=== PATIENT | male | born 2005 | race Hispanic/Latino ===

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

== ENCOUNTER 2024-08-25 08:17 | Emergency (ER) | payer OTHER, SELFPAY ==
--- OUTSIDE RECORDS SUMMARY | 2024-08-25 08:21 | XMS REPORT | Continuity of Care Document ---
Author Name Unknown Address [address] [facility]. [address] [place] [address] [facility] Address [address] [facility] [address] [place] [address] Care Team Providers Care Consultant Teacher Name Role Phone PA BURROWS Primary Care Physician Unavail able MARK NDIAYE Attending Clinician UnavailAlex Cintron Attending Clinician Unavailable KNOW, DOES_NOT Admitting Clinician Unavailable Romana Floyd Admitting Clinician Unavailable Payers Payer Name Policy Type Policy Number Effective Date Expirati on Date Source [facility] [id number] 2017 00:00:00 Allergies, Adverse Reactions, Alerts Allergy Name Allergy Type Status Severity Reaction(s) Onset Date Inactive Date Treating Clinician Comments Source No Known Allergie s DA Active U 12-14 00:00: 00 [facility] Penicill ins Propensi ty to adverse reaction to drug Active 2018-05 00:00: 00 PENICILL IN DRUG INGREDI Active Unknown-Cmnt 2017-05 00:00: 00 [facility] Medications Ordered Medication Name Filled Medication Name Start Date Stop Date Current Medication? Ordering Clinician Indication Dosage Frequency Signature (SIG) Comments Components Source TAKE 1 TABLET BY MOUTH EVERY 12 HOURS 2022-0 8-29 00:00: 00 No 20 TAKE 1 TABLET BY MOUTH EVERY 12 HOURS 2022-0 8-29 00:00: 00 No &lt 2022-0 8-10 00:00: 00 No Dose Unknown 2022-0 8-10 00:00: 00 No TAKE 1 TABLET BY MOUTH THREE TIMES A DAY NEEDED FOR PAIN 2022-0 8-09 00:00: 00 No 800 TAKE 1 TABLET BY MOUTH THREE TIMES A DAY NEEDED FOR PAIN 2022-0 8-09 00:00: 00 No 800 Dose Unknown 2022-0 8-04 00:00: 00 No Dose Unknown 2022-0 8-04 00:00: 00 No Dose Unknown 2022-0 7-21 00:00: 00 No 20 &lt 2022-0 7-21 00:00: 00 No Dose Unknown 2022-0 7-21 00:00: 00 No 10 &lt 2022-0 7-21 00:00: 00 No 800 Dose Unknown 2022-0 7-21 00:00: 00 No 20 &lt 2022-0 7-21 00:00: 00 No Dose Unknown 2022-0 7-21 00:00: 00 No 10 &lt 2022-0 7-21 00:00: 00 No 800 ProAir HFA 90 mcg/actuati on aerosol inhaler 2022-0 6-14 00:00: 00 No 2mcg/ac tuation Flovent HFA 44 mcg/actuati on aerosol inhaler 2022-0 6-14 00:00: 00 No 2mcg/ac tuation cetirizine 10 mg tablet 2022-0 6-14 00:00: 00 No 1mg &lt 2022-0 6-14 00:00: 00 No &lt 2022-0 6-14 00:00: 00 No ProAir HFA 90 mcg/actuati on aerosol inhaler 2022-0 6-14 00:00: 00 No 2mcg/ac tuation Flovent HFA 44 mcg/actuati on aerosol inhaler 2022-0 6-14 00:00: 00 No 2mcg/ac tuation cetirizine 10 mg tablet 2022-0 6-14 00:00: 00 No 1mg &lt 2022-0 6-14 00:00: 00 No &lt 2022-0 6-14 00:00: 00 No ProAir HFA 90 mcg/actuati on aerosol inhaler 0 9-08 00:00: 00 No 2mcg/ac tuation Flovent HFA 44 mcg/actuati on aerosol inhaler 0 9- 00:00: 00 No 2mcg/ac tuation prednisone 20 mg tablet 0 9- 00:00: 00 No 1mg ProAir HFA 90 mcg/actuati on aerosol inhaler 0 9- 00:00: 00 No 2mcg/ac tuation Flovent HFA 44 mcg/actuati on aerosol inhaler 0 02-04 00:00: 00 No 2mcg/ac tuation prednisone 20 mg tablet 0 02-04 00:00: 00 No 1mg ondansetron 4 mg disintegrat ing tablet 0 3-17 00:00: 00 No 1mg ondansetron 4 mg disintegrat ing tablet 0 3-17 00:00: 00 No 1mg ProAir HFA 90 mcg/actuati on aerosol inhaler 2019-05 2-11 00:00: 00 No 2mcg/ac tuation montelukast 10 mg tablet 2019-05 2-11 00:00: 00 No 1mg ProAir HFA 90 mcg/actuati on aerosol inhaler 2019-05 2-11 00:00: 00 No 2mcg/ac tuation montelukast 10 mg tablet 2019-05 2- 00:00: 00 No 1mg Nexium Packet 20 mg granules delayed release for susp 2019-0 -24 00:00: 00 No 1mg Nexium Packet 20 mg granules delayed release for susp 0 24 00:00: 00 No 1mg ProAir HFA 90 mcg/actuati on aerosol inhaler 02-19 00:00: 00 No 2mcg/ac tuation montelukast 10 mg tablet 02-19 00:00: 00 No 1mg prednisone 20 mg tablet 0 02-19 00:00: 00 No 1mg azithromyci n 250 mg tablet 0 02-19 00:00: 00 No mg ProAir HFA 90 mcg/actuati on aerosol inhaler 0 02-19 00:00: 00 No 2mcg/ac tuation montelukast 10 mg tablet 02-19 00:00: 00 No 1mg prednisone 20 mg tablet 02-19 00:00: 00 No 1mg azithromyci n 250 mg tablet 02-19 00:00: 00 No mg omeprazole 20 mg capsule,del ayed release 02-18 00:00: 00 No 1mg omeprazole 20 mg capsule,del ayed release 02-18 00:00: 00 No 1mg hydroxyzine HCl 50 mg tablet 02-17 00:00: 00 No 1mg hydroxyzine HCl 50 mg tablet 02-17 00:00: 00 No 1mg hydroxyzine HCl 50 mg tablet 01-24 00:00: 00 No 1mg ondansetron 8 mg disintegrat ing tablet 01-24 00:00: 00 No 1mg hydroxyzine HCl 50 mg tablet 01-24 00:00: 00 No 1mg ondansetron 8 mg disintegrat ing tablet 01-24 00:00: 00 No 1mg omeprazole 20 mg capsule,del ayed release 01-16 00:00: 00 No 1mg omeprazole 20 mg capsule,del ayed release 01-16 00:00: 00 No 1mg omeprazole 20 mg tablet,[place] yed release 01-14 00:00: 00 No 1mg ondansetron 4 mg disintegrat ing tablet 01-14 00:00: 00 No 1mg omeprazole 20 mg tablet,[place] y[place] release 01-14 00:00: 00 No 1mg ondansetron 4 mg disintegrat ing tablet 01-14 00:00: 00 No 1mg cetirizine 10 mg tablet 2018-05 00:00: 00 No 1mg azithromyci n 250 mg tablet 2018-05 00:00: 00 No mg montelukast 10 mg tablet 2018-05 00:00: 00 No 1mg Flonase Allergy Relief 50 mcg/actuati on nasal spray,suspe nsion 2018-05 00:00: 00 No 2mcg/ac tuation montelukast 10 mg tablet 2018-05 00:00: 00 No 1mg cetirizine 10 mg tablet 2018-05 00:00: 00 No 1mg azithromyci n 250 mg tablet 2018-05 00:00: 00 No mg Flonase Allergy Relief 50 mcg/actuati on nasal spray,suspe nsion 2018-05 00:00: 00 No 2mcg/ac tuation ProAir HFA 90 mcg/actuati on aerosol inhaler 2018-05 00:00: 00 No 2mcg/ac tuation Flovent HFA 44 mcg/actuati on aerosol inhaler 2018-05 00:00: 00 No 2mcg/ac tuation montelukast 10 mg tablet 2018-05 00:00: 00 No 1mg meclizine 25 mg tablet 2018-05 00:00: 00 No 1mg ProAir HFA 90 mcg/actuati on aerosol inhaler 2018-05 00:00: 00 No 2mcg/ac tuation Flovent HFA 44 mcg/actuati on aerosol inhaler 2018-05 00:00: 00 No 2mcg/ac tuation montelukast 10 mg tablet 2018-05 00:00: 00 No 1mg meclizine 25 mg tablet 2018-05 00:00: 00 No 1mg Vital Signs Vital Name Observation Time Observation Value Comments S ource BP Systolic 2021-12-17 17:39:00 135 mm[Hg] BP [...] 11:38:00 88.00 /min Respiratory Rate 2019-03-21 11:38:00 Plan of Care Planned Activity Planned Date Details Comments Source Goal Plan of Care Note [code = 71167-5] Goal Plan of Care Note [code = 69849-7] Goal Plan of Care Note [code = 70346-1] Goal Plan of Care Note [code = 41679-6] Goal Plan of Care Note [code = 10623-8] Goal Plan of Care Note [code = 33038-0] Goal Plan of Care Note [code = 15172-6] Goal Plan of Care Note [code = 28297-6] Goal Plan of Care Note [code = 80705-2] Goal Plan of Care Note [code = 32272-6] Goal Plan of Care Note [code = 35442-7] Goal Plan of Care Note [code = 58000-4] Goal Plan of Care Note [code = 56770-2] Goal Plan of Care Note [code = 91873-1] Goal Plan of Care Note [code = 77366-0] Goal Plan of Care Note [code = 36474-4] Goal Plan of Care Note [code = 49649-1] Goal Plan of Care Note [code = 06443-1] Goal Plan of Care Note [code = 03254-5] Goal Plan of Care Note [code = 95865-7] Goal Plan of Care Note [code = 37139-6] Goal Plan of Care Note [code = 60083-1] Goal Plan of Care Note [code = 08561-4] Goal Plan of Care Note [code = 20484-8] Goal Plan of Care Note [code = 37747-4] Goal Plan of Care Note [code = 21643-1] Goal Plan of Care Note [code = 89657-9] Goal Plan of Care Note [code = 82688-7] Goal Plan of Care Note [code = 89733-1] Goal Plan of Care Note [code = 61240-4] Goal Plan of Care Note [code = 37043-8] Goal Plan of Care Note [code = 36046-3] Goal Plan of Care Note [code = 63143-5] Goal Plan of Care Note [code = 47549-5] Goal Plan of Care Note [code = 60293-3] Goal Plan of Care Note [code = 07369-2] Goal Plan of Care Note [code = 94441-1] Goal Plan of Care Note [code = 51721-3] Goal Plan of Care Note [code = 96926-9] Goal Plan of Care Note [code = 76333-5] Goal Plan of Care Note [code = 53452-9] Goal Plan of Care Note [code = 67901-6] Goal Plan of Care Note [code = 50003-8] Goal Plan of Care Note [code = 80064-7] Goal Plan of Care Note [code = 53849-2] Goal Plan of Care Note [code = 56050-0] Goal Plan of Care Note [code = 64390-8] Goal Plan of Care Note [code = 96182-5] Goal Plan of Care Note [code = 51864-1] Goal Plan of Care Note [code = 38565-4] Goal Plan of Care Note [code = 71957-5] Goal Plan of Care Note [code = 84227-2] Goal Plan of Care Note [code = 59703-5] Goal Plan of Care Note [code = 07629-0] Goal Plan of Care Note [code = 63104-4] Goal Plan of Care Note [code = 55988-5] Goal Plan of Care Note [code = 27443-2] Goal Plan of Care Note [code = 40246-0] Goal Plan of Care Note [code = 83691-5] Goal Plan of Care Note [code = 19467-9] Goal Plan of Care Note [code = 67461-8] Goal Plan of Care Note [code = 53229-4] Goal Plan of Care Note [code = 67022-4] Goal Plan of Care Note [code = 27388-9] Goal Plan of Care Note [code = 11101-6] Goal Plan of Care Note [code = 50100-9] Goal Plan of Care Note [code = 79023-8] Goal Plan of Care Note [code = 93827-7] Goal Plan of Care Note [code = 40809-8] Goal Plan of Care Note [code = 09546-7] Goal Plan of Care Note [code = 39294-1] Goal Plan of Care Note [code = 00598-1] Goal Plan of Care Note [code = 11438-9] Goal Plan of Care Note [code = 12254-4] Encounters Start Date/Time End Date/Time Encounter Type Admission Type Attending [facility] Care Department Encounter ID Source 2023-02-07 11:48:09 2023-02-07 11:48:09 Outpatient [facility] [id number] Eren Hunt 2022-03-08 14:07:41 2022-03-08 14:07:41 Outpatient [facility] [id number] Eren Hunt 2022-03-08 00:00:00 2022-03-08 00:00:00 Outpatient Visit [id number] 2022-01-25 00:00:00 2022-01-25 00:00:00 Outpatient Visit [id number] 2021-12-25 09:15:00 2021-12-25 09:15:00 Outpatient [facility] [id number] [facility] 2021-12-25 09:15:00 2021-12-25 09:15:00 Outpatient [facility] [id number] [facility] 2021-12-17 00:00:00 2021-12-17 00:00:00 Outpatient Visit [id number] 2021-12-14 09:48:00 2021-12-14 11:00:00 Emergency EM Alex Nolen HCAPM SONIA [id number] [facility] 2021-12-14 09:48:00 2021-12-14 11:00:00 Emergency EM Alex Nolen HCAPM [facility] [id number] [facility] Results Test Description Test Time Test Comments Results Result Co mments Source - XR KNEE 3 V LT 2021-12-14 10:17:00 [facility] 2005 Sex: M Name: YAHAIRA GARCÍA [place] : 2005 Age/S: 16 / M [address] [facility] Unit #: [id number] Loc: [place] [address] Phys: Alex Nolen DO Acct: [id number] Dis Date: Status: REG ER PHONE #: [phone] Exam Date: 12/14/2021 1013 FAX #: Reason: trauma EXAMS: CPT: [id number] XR KNEE 3 V LT [address]402 Fluoro Time: DAP (Gy m2): Air Kerma [...] PAGE 1 Signed Report Name: YAHAIRA GARCÍA [place] : 2005 Age/S: 16 / M [address] [place] [address] Unit #: [id number] Loc: [place] [address] Phys: Alex Nolen DO Acct: [id number] Dis Date: Status: REG ER PHONE #: [phone] Exam Date: 12/14/2021 1013 FAX #: Reason: trauma EXAMS: CPT: [id number] XR KNEE 3 [place] [address] Fluoro Time: DAP (Gy m2): Air Kerma (mGy): (Continued) Technologist: RT Stephanie(R) Trnscb Date/Time: 12/14/2021 (1017) Garo Orig Print D/T: S: 12/14/2021 (1020) PAGE 2 Signed Report SARS-CoV-2 (COVID-19) by RT-PCR (HIGH RISK)2021-02-06 00:00:00* Test Item Value Reference Range Interpretation Comme nts SARS-CoV-2 INTERPRETATION (t est code = 05496) NEGATIVE SOURCE (test code = 56051) NOT SPECIFIED SARS-CoV-2 (COVID-19) by RT-PCR (HIGH RISK)2021-02-06 00:00:00* Test Item Value Reference Range Interpretation Comme nts SARS-CoV-2 INTERPRETATION (t est code = 27261) NEGATIVE SOURCE (test code = 96974) NOT SPECIFIED CHLAMYDIA TRACHOMATIS RNA, [id number] 00:00:00* Test Item Value Reference Range Interpretation Comme nts CHLAMYDIA TRACHOMATIS RNA, T MA, UROGENITAL (test code = 66473-2) NOT DETECTED COMMENT (test code = ) NEISSERIA GONORRHOEAE RNA, [id number] 00:00:00* Test Item Value Reference Range Interpretation Comme nts NEISSERIA GONORRHOEAE RNA, T MA, UROGENITAL (test code = 88260-0) NOT DETECTED COMMENT (test code = ) CHLAMYDIA TRACHOMATIS RNA, [id number] 00:00:00* Test Item Value Reference Range Interpretation Comme nts CHLAMYDIA TRACHOMATIS RNA, T MA, UROGENITAL (test code = 17628-8) NOT DETECTED COMMENT (test code = ) NEISSERIA GONORRHOEAE RNA, [id number] 00:00:00* Test Item Value Reference Range Interpretation Comme nts NEISSERIA GONORRHOEAE RNA, T MA, UROGENITAL (test code = 87637-3) NOT DETECTED COMMENT (test code = ) CHLAMYDIA TRACHOMATIS RNA, [id number] 00:00:00* Test Item Value Reference Range Interpretation Comme nts CHLAMYDIA TRACHOMATIS RNA, T MA, UROGENITAL (test code = 66332-1) NOT DETECTED COMMENT (test code = ) NEISSERIA GONORRHOEAE RNA, [id number] 00:00:00* Test Item Value Reference Range Interpretation Comme nts NEISSERIA GONORRHOEAE RNA, T MA, UROGENITAL (test code = 54788-1) NOT DETECTED COMMENT (test code = ) Notes Date/Time Note Provider Source 2021-12-14 09:57:00 [facility] ([facility]) EMERGENCY PROVIDER REPORT REPORT#:[id number] REPORT STATUS: Signed DATE:12/14/21 TIME:956 PATIENT: YAHAIRA NORMAN Batsheva UNIT #: [id number] ROOM/BED: : 03 AGE: 16 SEX: M PCP PHYS: Romana Floyd MD SERVICE AUTHOR: Alex Nolen DO * ALL edits or amendments must be made on the electronic/computer document * HPI-Knee Prob/Inj General Confirmed Patient Yes Initial Greet Date/Time 12/14/21 0949 Presentation Chief Complaint Knee injury L Hx Obtained From Patient, EMS Onset Occurred Sudden, Today, Just prior to arrival Symptom Duration Since onset Progression since Onset Unchanged Context of Onset Workplace Caused by Accidental Location Patella L Quality Painful Radiation Does not radiate Severity: Onset Moderate Severity: Current Moderate Associated with Denies: Calf pain, Calf swelling, Cold extremity, Fever, Joint swelling, Neuro symptoms pre-arriv, Numbness, Rash, Shortness of breath, Swelling behind knee, Swollen extremity, Unable to walk, Weak extremity, Weakness. Exacerbated by Palpation Relieved by Nothing Free Text HPI Notes Free Text HPI Notes Patient states that he was lifting a bag of mulch and twisted and felt his knee give out. Complaining of pain to the left knee since the incident. No numbness , tingling or weakness. No fall or sustain any other injury. EMS gave the patient 50 mics of fentanyl prior to arrival. Review of Systems ROS Statements Complete sys rev neg except as marked. Focused Review of Systems Constitutional Denies: Chills, Fever, Lethargy. Musculoskeletal Reports: Joint pain. Denies: Back pain, Extremity pain, Extremity swelling, Joint swelling, Neck pain. Skin Denies: Abrasion, Laceration. Neurologic Denies: Focal weakness, Numbness. Past Medical History - Adult Stated Complaint LEFT KNEE DISLOCATION Allergies Coded Allergies: No Known Allergies (12/14/21) Pt reports no significant: Past medical history, Past surgical history Physical Exam Vital Signs Vital Signs First Documented: Result Date Time Pulse Ox 100 12/14 0951 B/P 140/84 12/14 0951 B/P Mean 102 12/14 0951 O2 Delivery Room air 12/14 0951 Temp 97.4 12/14 0951 Pulse 58 12/14 0951 Resp 14 12/14 0951 Last Documented: Result Date Time Pulse Ox 100 12/14 1047 B/P 117/59 12/14 1047 B/P Mean 78 12/14 1047 O2 Delivery Room air 12/14 1047 Pulse 70 12/14 1047 Resp 22 12/14 1047 Temp 97.4 12/14 0951 Review of Vital Signs Reviewed Focused PE General/Const General/Const Awake, Alert, Well appearing Resp/Chest Respiratory/Chest Breath sounds NL, Breath sounds = bilat, No respiratory distress, No rales, No rhonchi, No wheezing Cardiovascular Cardiovascular Heart rate NL, Regular rhythm, Heart sounds NL, Peripheral circulation NL MS Lower Extrem Lower Ext/Pelvis/MS Full range of motion, No swelling, No erythema, No deformity, Neurologic intact, Vascular intact, No ligamentous injury, No edema Left Thigh Negative: Swelling present, Tenderness present, Ecchymosis present, Erythema present, Warmth present, Deformity femur prox, Deformity femur mid, Deformity femur distal, Open fracture present, Antalgic gait, Pulse popliteal absent, Pulse popliteal decreased, Pulses distal absent, Pulses distal decreased, Neuro deficit present. Left Knee Tenderness present, Patella dislocated. Negative: Swelling present, Ecchymosis present, Erythema present, Deformity present, Open fracture present, Pulse popliteal absent, Pulse popliteal decreased, Pulses distal absent, Pulses distal decreased, Neuro deficit present. Left Leg/Calf Negative: Swelling present, Tenderness present, Ecchymosis present, Erythema present, Warmth present, R calf > L calf, L calf > R calf, Lavonne's sign positive , Deformity proximal, Deformity middle, Deformity distal, Open fracture present, Pulses distal absent, Pulses distal decreased, Neuro deficit present. Skin Skin Color NL, Warm, Dry, Intact, Turgor NL, No swelling Neurologic Neurologic Oriented X3, Speech NL, No motor deficits, No sensory deficits Additional PE MS Head Head Atraumatic, Normocephalic MS Upper Extrem Upper Extremity/MS Atraumatic, Inspection NL MS Wrist/Hand Wrist/Hand Atraumatic, Inspection NL Interpretation Diagnostics Lab Results Interpretation Results Recent Impressions: RADIOLOGY - XR KNEE 3 V LT 12/14 1000 Report Impression - Status: SIGNED Entered: 12/14/2021 1020 IMPRESSION: No acute osseous abnormality. Impression By: Garo Conley M.D. Procedures Reduction Fracture Text/Dict Note Closed reduction of left patella dislocation Start Time 09 Consent/Setup Verified correct patient, Consent from patient Neurovascular Pre-Procedure Neurologic intact, Vascular intact Fracture Reduction by ED physician (Dr. Nolen) Reduction Method/Location Manipulation Type of Immobilization knee immobilizer Immobilization Applied by Nurse Post-Procedure/Complications Alignment achieved, Neurovascular intact, X-Ray confirms reduction, No complications, Condition improved, Tolerated procedure well, Patient stable, unsuccessful attempt. Patella spontaneouly reduced following attempt. Re-Evaluation MDM Re-Evaluation/Progress Re-Evaluation/Progress Time of Re-Eval 1030 Re-Eval Status Improved Post Splint Evaluation Cap refill < 2 seconds, Distal sensation intact, Distal motor func intact, No signs compartment synd Eval Following Treatment Pt. feels better Pain Re-Evaluation Denies pain Compartment Syndrome There are no signs or symptoms of compartment syndrome in the injured extremity at the time of this examination. Any pain the patient has is in proportion to the injury, the peripheral circulation is intact, capillary refill is not delayed, and there is no numbness, tingling or paresthesia. ED Course Medication(s) Ordered Medication(s) Ordered: Central Nervous System Agents Sig/Ravi Start time Last Medication Dose Route Stop Time Status Admin Ketorolac 30 MG X1ED STA 12/14 1002 DC 12/14 Tromethamine IV 12/14 1003 1007 Morphine Sulfate 4 MG X1ED STA 12/14 0955 CAN IV 12/14 0956 Patient Discharge Departure Vital Signs/Condition Vital Signs First Documented: Result Date Time Pulse Ox 100 12/14 0951 B/P 140/84 12/14 0951 B/P Mean 102 12/14 0951 O2 Delivery Room air 12/14 0951 Temp 97.4 12/14 0951 Pulse 58 12/14 0951 Resp 14 12/14 0951 Last Documented: Result Date Time Pulse Ox 100 12/14 1047 B/P 117/59 12/14 1047 B/P Mean 78 12/14 1047 O2 Delivery Room air 12/14 1047 Pulse 70 12/14 1047 Resp 22 12/14 1047 Temp 97.4 12/14 0951 All vital signs available at the time of this entry have been reviewed. Clinical Impression Clinical Impression Primary Impression: Dislocation of left patella Disposition Decision Discharge )( Discharged to Home Yes )( Time 1038 )( Date 12/14/21 Discharge/Care Plan Counseled Regarding Diagnosis, Imaging studies, Prescriptions, Need for follow- up, When to return to ED (Auto) Prescriptions Current Visit Scripts IBUPROFEN (MOTRIN) 800 MG PO TID PRN PRN PAIN IBUPROFEN (MOTRIN) 800 MG PO TID PRN PRN PAIN #20 TABS Patient Instructions ED Patellar Dislocation/Subluxation Referrals Provider Referral: Milton Muñoz MD Follow-Up: 2-3 Days Address: [address] [place] [id number] at 1207 RPT #: [id number] [facility]
--- NOTE | 2024-08-25 08:45 | RAD REPORT ---
EXAMINATION: ONE VIEW CHEST XR CLINICAL INDICATION: Male, 19 years old.,COUGH TECHNIQUE: Frontal chest projection is submitted. Examination is limited by patient positioning and t echnique. COMPARISON: 09/06/2017 FINDINGS: The lungs are well inflated and clear. No pneumothorax or sizable effusion. The heart is normal in s ize. Mediastinal contours are unremarkable. IMPRESSION: No acute intrathoracic abnormalities.
[2024-08-25] MEDS ORDERED: ALBUTEROL 2.5 MG/3 ML NEB SOL ONE (08:49)
[2024-08-25] MEDS ORDERED: IPRATROPIUM BROM 0.5MG/2.5ML ONE (08:49)
[2024-08-25] MEDS ORDERED: IBUPROFEN 200 MG TAB PO ONE (08:50)
[2024-08-25 09:06] LABS: Influenza A Ag Positive; Influenza B Ag Negative; SARS-CoV-2 Antigen Rapid Res Negative (Negative)
--- NOTE | 2024-08-25 09:14 | ER ---
Nurse's Notes [facility] Name: Armen Barnett Age: 19 yrs Sex: Male : 2005 Arrival Date: 08/25/2024 Time: 08:17 Bed 2 Private MD: Diagnosis: Influenza Presentation: 08/25 08:28 Chief complaint: Patient states: MCKEON, MALAISE, FLU-LIKE S/S SINCE Y/D. Coronavirus bp screen: congestion, headache, muscle pain. Ebola Screen: No symptoms or risks identified at this time. Initial Sepsis Screen: Does the patient meet any 2 criteria? HR > 90 bpm. No. Patient's initial sepsis screen is negative. Does the patient have a suspected source of infection? No. Patient's initial sepsis screen is negative. Risk Assessment: Do you want to hurt yourself or someone else? Patient reports no desire to harm self or others. Onset of symptoms is unknown. 08:28 Method Of Arrival: Ambulatory bp 08:28 Acuity: LORA 3 bp Triage Assessment: 08:29 General: Appears in no apparent distress. ill, Behavior is calm, cooperative, bp appropriate for age. Pain: Denies pain. EENT: Reports nasal congestion. Neuro: No deficits noted. Cardiovascular: Capillary refill Patient's skin is warm and dry. Respiratory: No deficits noted. GI: No signs and/or symptoms were reported involving the gastrointestinal system. : No signs and/or symptoms were reported regarding the genitourinary system. Derm: No deficits noted. Musculoskeletal: No deficits noted. Historical: - Allergies: 08:29 PENICILLINS; bp - PMHx: 08:29 ADD/ADHD; Asthma; Colar's disease; GERD; tracheobroncial malacia; Vertigo; bp - Immunization history:: Adult Immunizations up to date. - Infectious Disease History:: Denies. - Social history:: Smoking status: unknown. Screenin:35 [facility] ED Fall Risk Assessment (Adult) History of falling in the last 3 months, iw including since admission No falls in past 3 months (0 pts) Confusion or Disorientation No (0 pts) Intoxicated or Sedated No (0 pts) Impaired Gait No (0 pts) Mobility Assist Device Used No (0 pt) Altered Elimination No (0 pt) Score/Fall Risk Level 0 - 2 = Low Risk Oriented to surroundings, Maintained a safe environment. Abuse screen: Denies threats or abuse. Nutritional screening: No deficits noted. Tuberculosis screening: No symptoms or risk factors identified. Assessment: 09:34 General: Appears in no apparent distress. Behavior is calm, cooperative. General: iw Denies fever, feeling ill, fatigue. Neuro: Level of Consciousness is awake, alert, obeys commands, Oriented to person, place, time, situation. Respiratory: Respiratory effort is even, unlabored, Respiratory pattern is regular, symmetrical. Vital Signs: 08:28 BP 132 / 79; Pulse 108; Resp 20; Temp 99.1; Pulse Ox 100% ; bp 09:35 BP 120 / 66; Pulse 115; Resp 18; Temp 99.9; Pulse Ox 100% on R/A; iw ED Course: 08:21 Patient arrived in ED. sj2 08:23 Hebert Bazan, RN is Primary Nurse. bp 08:26 Bobby Bustos MD is Attending Physician. sp3 08:29 Triage completed. bp 08:29 Arm band placed on. bp 08:32 COVID swab sent to lab. Flu and/or RSV swab sent to lab. nh2 08:35 COVID-19 Ag + Flu A+B Ag Sent. nh2 08:37 CXR XRAY In Process Unspecified. EDMS 09:35 Patient has correct armband on for positive identification. Provided Education on: . iw Client placed on continuous cardiac and pulse oximetry monitoring. NIBP monitoring applied. 09:36 No provider procedures requiring assistance completed. Patient did not have IV access iw during this emergency room visit. Patient maintains SpO2 saturation greater than 95% on room air. Administered Medications: 08:53 Drug: DuoNeb Nebulize (3:1) (2.5 mg - 0.5 mg) 3 ml Nebulizer once Route: Nebulizer; bp 08:53 Drug: Ibuprofen PO 600 mg PO once Route: PO; bp Medication: 09:36 VIS not applicable for this client. iw Outcome: 09:14 Discharge ordered by . sp3 09:35 Discharged to home ambulatory, with family, iw 09:35 Condition: good 09:35 Discharge instructions given to patient, family, Instructed on discharge instructions, follow up and referral plans. medication usage, Demonstrated understanding of instructions, follow-up care, medications, Prescriptions given X 1, 09:36 Patient left the ED. iw Signatures: Dispatcher [employer] Inga Jensen RN RN iw Peltier, Brian, RN RN bp Patel, Setul, MD MD sp3 Marcellus Warren Jr [facility] Gerardo Patel 2
--- NOTE | 2024-08-25 09:14 | EDPHYS ---
Physician Documentation [facility] Name: Armen Barnett Age: 19 yrs Sex: Male : 2005 Arrival Date: 08/25/2024 Time: 08:17 Bed 2 Private MD: ED Physician Bobby Bustos HPI: 08/25 08:34 This 19 yrs old Male presents to ER via Ambulatory with complaints of body sp3 aches, cough, congestion. 08:34 19-year-old male with history of asthma, tracheobronchial malacia, vertigo, ADHD now sp3 presents to the ED with chief complaint body aches, cough, congestion and mild difficulty breathing. 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 He denies any fever, headache, neck pain, chest pain, back pain, abdominal pain, nausea, vomiting, diarrhea, syncope, near syncope, rash, bleeding, trauma, plain immobilization, travel history, or any other signs or symptoms on ROS at this time.. Historical: - Allergies: 08:29 PENICILLINS; bp - PMHx: 08:29 ADD/ADHD; Asthma; Colar's disease; GERD; tracheobroncial malacia; Vertigo; bp - Immunization history:: Adult Immunizations up to date. - Infectious Disease History:: Denies. - Social history:: Smoking status: unknown. ROS: 08:35 Eyes: Negative for injury, pain, redness, and discharge, ENT: Negative for injury, sp3 pain, and discharge, Neck: Negative for injury, pain, and swelling, Cardiovascular: Negative for chest pain, palpitations, and edema, Abdomen/GI: Negative for abdominal pain, nausea, vomiting, diarrhea, and constipation, Back: Negative for injury and pain, MS/Extremity: Negative for injury and deformity, Skin: Negative for injury, rash, and discoloration, Neuro: Negative for headache, weakness, numbness, tingling, and seizure, Psych: Negative for depression, anxiety, suicide ideation, homicidal ideation, and hallucinations, Allergy/Immunology: Negative for hives, rash, and allergies, Endocrine: Negative for neck swelling, polydipsia, polyuria, polyphagia, and marked weight changes, 08:35 All other systems are negative, Exam: 08:35 Constitutional: This is a well developed, well nourished patient who is awake, alert, sp3 and in no acute distress. Head/Face: Normocephalic, atraumatic. Eyes: Pupils equal round and reactive to light, extra-ocular motions intact. Lids and lashes normal. Conjunctiva and sclera are non-icteric and not injected. Cornea within normal limits. Periorbital areas with no swelling, redness, or edema. Neck: Trachea midline, no thyromegaly or masses palpated, and no cervical lymphadenopathy. Supple, full range of motion without nuchal rigidity, or vertebral point tenderness. No Meningismus. Chest/axilla: Normal chest wall appearance and motion. Nontender with no deformity. No lesions are appreciated. Cardiovascular: Regular rate and rhythm with a normal S1 and S2. No gallops, murmurs, or rubs. Normal PMI, no JVD. No pulse deficits. Abdomen/GI: Soft, non-tender, with normal bowel sounds. No distension or tympany. No guarding or rebound. No evidence of tenderness throughout. Back: No spinal tenderness. No costovertebral tenderness. Full range of motion. Skin: Warm, dry with normal turgor. Normal color with no rashes, no lesions, and no evidence of cellulitis. MS/ Extremity: Pulses equal, no cyanosis. Neurovascular intact. Full, normal range of motion. Neuro: Awake and alert, GCS 15, oriented to person, place, time, and situation. Cranial nerves II-XII grossly intact. Motor strength 5/5 in all extremities. Sensory grossly intact. Cerebellar exam normal. Normal gait. Psych: Awake, alert, with orientation to person, place and time. Behavior, mood, and affect are within normal limits. 08:35 Respiratory: Mild cough noted. Scattered wheeze., Vital Signs: 08:28 BP 132 / 79; Pulse 108; Resp 20; Temp 99.1; Pulse Ox 100% ; bp 09:35 BP 120 / 66; Pulse 115; Resp 18; Temp 99.9; Pulse Ox 100% on R/A; iw MDM: 08:26 Medical Screening Exam initiated sp3 08:36 Data reviewed: vital signs, nurses notes, lab test result(s), radiologic studies. ED sp3 course: 19-year-old male with upper respiratory symptoms. Differential diagnosis includes upper respiratory faction, viral illness, COVID-19, influenza, bronchitis, pneumonia, among others. I am not highly suspicious of sepsis, shock, acute coronary syndrome, PE, TAD, or any other critical process. Workup will include chest x-ray, viral swabs and treatment with nebulizer. If workup negative we will safely discharge patient home.. 08/25 08:27 Order name: COVID-19 Ag + Flu A+B Ag; Complete Time: 09:12 sp3 08/25 08:27 Order name: CXR XRAY; Complete Time: 08:48 sp3 Administered Medications: 08:53 Drug: DuoNeb Nebulize (3:1) (2.5 mg - 0.5 mg) 3 ml Nebulizer once Route: Nebulizer; bp 08:53 Drug: Ibuprofen PO 600 mg PO once Route: PO; bp Disposition Summary: 08/25/24 09:14 Discharge Ordered Notes: Location: Home sp3 Condition: Stable sp3 Diagnosis - Influenza sp3 Followup: sp3 - With: Private Physician - When: Upon discharge from the Emergency Department - Reason: Continuance of care Discharge Instructions: - Discharge Summary Sheet sp3 - Influenza, Adult sp3 Forms: - Work release form hb - Medication Reconciliation Form sp3 - Antibiotic Education sp3 - Prescription Opioid Use sp3 - Patient Portal Instructions sp3 - Leadership Thank You Letter sp3 Prescriptions: - Tamiflu 75 mg Oral capsule - take 1 tablet ORAL route every 12 hours for 5 days; 10 tablet; Refills: 0, sp3 Product Selection Permitted Signatures: Dispatcher [employer] Hebert Lee, Bobby Strange RN, MD MD sp3
[2024-08-25 09:40] VITALS: O2SAT 100
[2024-08-25 09:41] VITALS: BP 120/66; TEMP 99.9
== END 2024-08-25 09:36 | disposition home or self-care (01) ==
LOC: ER 08:17
DX: J11.1 Influenza due to unidentified influenza virus with other respiratory manifestations (principal); Z11.52 Encounter for screening for COVID-19
CPT/HCPCS: 36415; 71045; 87428; 99284; J7613; J7644